=== PATIENT | female | born 1995 | race Caucasian/White ===

== ENCOUNTER 2018-12-22 20:50 | Emergency (ER) | payer OTHER, SELFPAY ==
[2018-12-22 20:53] VITALS: BP 130/79; PULSE 95; RESP 20; TEMP 37.1; O2SAT 100
--- NOTE | 2018-12-22 20:58 | DI.RAD.S_ITS ---
PROCEDURE: XR CHEST 2V INDICATIONS: productive cough TECHNIQUE: 2 views of the chest were acquired. COMPARISON: None. FINDINGS: Surgical changes and devices: None. Lungs and pleura: Lungs are clear. No pleural effusions or pneumothorax. Mediastinum: Mediastinal contours are normal. Heart size is normal. Bones and chest wall: No suspicious bony abnormalities. Soft tissues appear unremarkable. IMPRESSION: 1. No acute cardiopulmonary disease. Dictated by: Huy Abreu M.D. on 12/22/2018 at 21:41 Approved by: Huy Abreu M.D. on 12/22/2018 at 21:41
--- NOTE | 2018-12-22 21:42 | ED.URI ---
HPI - URI/Sore Throat <Michelle Franklin PA-C - Last Filed: 12/22/18 22:12> General Chief Complaint: Upper Respiratory Symptoms Stated Complaint: difficulty breathing Time Seen by Provider: 12/22/18 21:42 Source: patient Mode of arrival: ambulatory Limitations: no limitations History of Present Illness HPI Narrative: This 23-year-old female comes in due to productive cough, wheeze and tight chest. She states that on Friday she developed nasal and sinus congestion. She started to have a little bit of tight chest and wheeze. She began having productive cough with green sputum today and tight chest and wheeze were worse, her inhaler helped temporarily, but she was concerned about pneumonia. She states her throat is a little bit sore from coughing, otherwise no sore throat, no earache. She denies sinus pain or fever. She does not have body aches. She does not have chest pain. She states she is feeling a lot better after a nebulizer treatment. Denies (she is on OCP) Related Data Allergies Allergy/AdvReac Type Severity Reaction Status Date / Time cat dander Allergy Verified 12/22/18 20:58 Review of Systems <Michelle Franklin PA-C - Last Filed: 12/22/18 22:12> Review of Systems ROS Unobtainable: All systems reviewed & are unremarkable except as noted in HPI and below PFSH <Michelle Franklin PA-C - Last Filed: 12/22/18 22:12> Medical History (Updated 12/22/18 @ 22:03 by Michelle Franklin PA-C) Allergy-induced asthma (Chronic) Chronic constipation (Chronic) Dysphagia (Chronic) Surgical History (Updated 12/22/18 @ 22:03 by Michelle Franklin PA-C) Status post tonsillectomy (Resolved) Social History Smoking Status: Never smoker Social History Smoking Status: Never smoker Exam <Michelle Franklin PA-C - Last Filed: 12/22/18 22:12> Narrative Exam Narrative: GENERAL APPEARANCE: Patient sitting comfortably, in no distress. HEAD: No sinus TTP. EYES: PERRL, EOMI. EARS: Normal auditory canals, TMS intact with normal light reflexes. ORAL CAVITY: Normal oropharynx. THROAT: Clear. NECK/THYROID: Neck supple, full range of motion, no cervical lymphadenopathy. LUNGS: Breath sounds are somewhat coarse, but no wheezes or crackles, good air entry, occasional wet cough on exam HEART: RRR without murmur, nl S1, S2, no S3 or S4. DERMATOLOGIC: No exanthem EXTREMITIES: No edema Initial Vital Signs Initial Vital Signs: Vital Signs Temperature 98.8 F 12/22/18 20:53 Pulse Rate 95 H 12/22/18 20:53 Respiratory Rate 20 12/22/18 20:53 Blood Pressure 130/79 12/22/18 20:53 Pulse Oximetry 100 12/22/18 20:53 <Bao Snow DO - Last Filed: 12/23/18 02:50> Initial Vital Signs Initial Vital Signs: Vital Signs Temperature 98.8 F 12/22/18 20:53 Pulse Rate 95 H 12/22/18 20:53 Respiratory Rate 20 12/22/18 20:53 Blood Pressure 130/79 12/22/18 20:53 Pulse Oximetry 100 12/22/18 20:53 Course <Michelle Franklin PA-C - Last Filed: 12/22/18 22:12> Orders Ordered: ED Orders 12/22/18 20:58 XR chest 2V Stat Discontinued Medications Albuterol (Ventolin Hfa Prepack) 1 box MISC SEEINSTR ONE Stop: 12/22/18 21:36 Last Admin: 12/22/18 21:54 Dose: 1 box Albuterol/Ipratropium (Duoneb) 3 ml INH NOW ONE Stop: 12/22/18 21:37 Last Admin: 12/22/18 21:54 Dose: 3 ml Vital Signs - 8 hr 12/22/18 20:53 12/22/18 22:07 Temperature 98.8 F Pulse Rate 95 H 91 H Respiratory Rate 20 22 Blood Pressure 130/79 120/71 Pulse Oximetry 100 98 <DO Jeanine Botello Last Filed: 12/23/18 02:50> Orders Ordered: ED Orders 12/22/18 20:58 XR chest 2V Stat Discontinued Medications Albuterol (Ventolin Hfa Prepack) 1 box MISC SEEINSTR ONE Stop: 12/22/18 21:36 Last Admin: 12/22/18 21:54 Dose: 1 box Albuterol/Ipratropium (Duoneb) 3 ml INH NOW ONE Stop: 12/22/18 21:37 Last Admin: 12/22/18 21:54 Dose: 3 ml Vital Signs - 8 hr 12/22/18 20:53 12/22/18 22:07 Temperature 98.8 F Pulse Rate 95 H 91 H Respiratory Rate 20 22 Blood Pressure 130/79 120/71 Pulse Oximetry 100 98 MDM - URI/Sore Throat <Michelle Franklin PA-C - Last Filed: 12/22/18 22:12> Imaging Data Chest x-ray: Radiologist's impression: [address] [address] XRay Report Signed Patient: Shayla Zayas MMR#: [id number] : 1995Acct:[id number] Age/Sex: te of Service: 12/22/18 Loc: ED Accession Number: [id number] Procedure: XR chest 2V Ordering Provider: Bao Snow D.O. PROCEDURE: XR CHEST 2V INDICATIONS: productive cough TECHNIQUE: 2 views of the chest were acquired. COMPARISON: None. FINDINGS: Surgical changes and devices: None. Lungs and pleura: Lungs are clear. No pleural effusions or pneumothorax. Mediastinum: Mediastinal contours are normal. Heart size is normal. Bones and chest wall: No suspicious bony abnormalities. Soft tissues appear unremarkable. IMPRESSION: 1. No acute cardiopulmonary disease. Dictated by: Huy Abreu M.D. on 12/22/2018 at 21:41 Approved by: Huy Abreu M.D. on 12/22/2018 at 21:41 Discharge Plan Departure Patient Disposition: Home Clinical Impression: Mild intermittent reactive airway disease Upper respiratory infection Qualifiers: URI type: unspecified viral URI Qualified Code(s): J06.9 - Acute upper respiratory infection, unspecified Discharge Date/Time: 12/22/18 22:08 Interventions: ED Discharge Assessment Last Done: 12/22/18 22:07 Instructions: DI for Viral Upper Respiratory Infection -- Adult, DI for Reactive Airway Disease-Adult Activity Restrictions/Additional Instructions: I think that you have a viral head and chest cold which is causing your asthma to flare up. Your chest x-ray was normal today. Please continue your allergy medicine. You may wish to add pseudoephedrine (you can get this from the pharmacist [id number]) during the day to help with sinus pressure and nasal congestion, as well as Mucinex to help the chest congestion. Please use the inhaler as often as needed for tight chest and this may also help with your cough. Please stay home from work if you are feeling poorly and coughing a lot the next couple of days. Please follow-up with your PCP in the next couple of days to listen to your lungs again and determine whether you need any additional treatment besides your current inhaler. Viruses typically resolve on their own in a week or so Referrals: [facility] [Provider Group] <Bao Snow DO - Last Filed: 12/23/18 02:50> Cosjennifer ED Attending Shin Attestation: I was immediately available in the department for consultation. Documentation has been reviewed. I agree with assessment and plan.
[2018-12-22] MEDS: ALBUTEROL/IPRATROPIUM 3 ML AMPUL INH (21:54)
[2018-12-22] MEDS: ALBUTEROL HFA PREPACK 1 BOX MISC (21:54)
[2018-12-22 22:07] VITALS: BP 120/71; PULSE 91; RESP 22; O2SAT 98
== END 2018-12-22 22:08 | disposition home or self-care (01) ==
PROVIDERS: Emergency Provider Internal Medicine
DX: J45.20 Mild intermittent asthma, uncomplicated (principal); J06.9 Acute upper respiratory infection, unspecified; R07.89 Other chest pain
CPT/HCPCS: 71046; 94640; 99282; 99283

== ENCOUNTER 2019-01-27 12:08 | Day surgery (SDC) | payer OTHER, SELFPAY ==
--- NOTE | 2019-01-27 | PATH_ITS ---
[facility] Accession Number: [id number] . 01 Material submitted: . PART A: esophagus - DISTAL ESOPHAGEAL BIOPSY PART B: esophagus - PROXIMAL ESOPHAGEAL BIOPSY PART C: gastrointestinal site - GASTRIC ANTRUM . 01 Clinical history: . A-B: R/O EOE . 02 Diagnosis: A. - B. Distal Esophagus, Proximal Esophagus, Biopsies: Squamous mucosa with increased intraepithelial eosinophils (greater than 50 per high-powered field), please see comment. Negative for dysplasia and malignancy. . C. Stomach, Antrum, Biopsies: Reactive gastropathy with increased eosinophilia in the lamina propria (please see comment). No evidence of Helicobacter on H/E stain. Negative for intestinal metaplasia. Negative for dysplasia and malignancy. . . . . [facility]/02/01/2019 . 02 Comment: A.-B. In the proper clinical setting, the histopathologic appearance would support a clinical impression of eosinophilic esophagitis. The differential diagnosis includes drug reaction, gastroesophageal reflux, and food allergies. . C. The gastric antral biopsies show prominent increased eosinophils within the lamina propria. This process may be related to the eosinophilia in the esophageal biopsies. The differential diagnosis also includes infection, medication-related mucosal injury, and other diseases that cause systemic eosinophilia. . . 02 Electronically signed: . Yulia Kelly MD, Pathologist NPI- [id number] . 01 Gross description: . Part A: DISTAL ESOPHAGEAL BIOPSY: Received in formalin are 3 fragment(s) of avila, soft tissue measuring 0.1 x 0.1 x 0.1 cm to 0.2 x 0.1 x 0.1 cm which is entirely submitted and submitted entirely in 1 cassette(s) Part B: PROXIMAL ESOPHAGEAL BIOPSY: Received in formalin are 3 fragment(s) of avila, soft tissue measuring 0.1 x 0.1 x 0.1 cm to 0.2 x 0.2 x 0.2 cm which is entirely submitted and submitted entirely in 1 cassette(s) Part C: GASTRIC ANTRUM: Received in formalin are multiple fragment(s) of avila, soft tissue measuring 0.1 x 0.1 x 0.1 cm to 0.2 x 0.2 x 0.2 cm which is entirely submitted and submitted entirely in 1 cassette(s) /DMC /DMC . 02 Microscopic: . C. An immunohistochemical stain was performed to evaluate for Helicobacter organisms; however, there is no tissue remaining in the deeper levels used for examination. The control stain showed appropriate reactivity. Additional levels were also examined. . * This test was developed and its performance characteristics determined by [facility]. It has not been cleared or approved by the U.S. Food and Drug Administration. The FDA has determined that such clearance or approval is not necessary. This test is used for clinical purposes. It should not be regarded as investigational or for research. . 02 Pathologist provided ICD-10: K20.0 . 02 CPT . 462760, 323183, 768072, G98339 Performed at: 01 [facility] [address], [place], [place] [id number] MD Huy Mercer MD Phone: [phone] Performed at: 02 [facility] [place] [address] [place], [place] [id number] MD Yulia Kelly MD Phone: [phone]
[2019-01-27 12:41] VITALS: BP 112/69; PULSE 78; RESP 14; TEMP 36.8; O2SAT 98; BMI 22.2
[2019-01-27] MEDS: SODIUM CHLORIDE 0.9% 1,000 ML 200 ML IV (12:41)
--- NOTE | 2019-01-27 13:05 | PM.PREOP ---
Pre-operative Note Interval Note History & Physical reviewed/Exam performed by Physician: Yes Changes to H&P: No ASA Class (for procedural sedation): I
[2019-01-27] MEDS: fentaNYL 250 MCG/5 ML INJ IV (13:58)
[2019-01-27] MEDS: MIDAZOLAM 5 MG/5 ML VIAL IV (13:59)
--- NOTE | 2019-01-27 14:00 | PM.OP.ENDO ---
Operative Date/Time/Diagnoses Date of procedure: 01/27/19 Procedure & Clinicians Study performed: EGD with biopsy Moderate conscious sedation was administered by the endoscopy nurse and supervised by the endoscopist. The following parameters were monitored: Oxygen saturation, heart rate, blood pressure, and response to care. Sedation: 7 mg midazolam, 100 micro g fentanyl Indications: Esophageal dysphagia, GERD Procedure Notes Procedure in detail: Prior to the procedure, history and physical was performed, and patient medications and allergies were reviewed. Preprocedure nursing history and assessment was reviewed. Patient identification and proposed procedure were verified by the physician and nurse in the procedure room. The physical status of the patient was reassessed after the procedure. After informed consent was obtained including risks, benefits, and alternatives, the scope was passed under direct vision. Throughout the procedure, the patient's blood pressure, pulse, and oxygen saturations were monitored continuously. The upper endoscope was introduced through the mouth and advanced to the 2nd portion of the duodenum. Retroflexion was performed in the stomach. The patient tolerated the procedure well. The entire esophagus was characterized by concentric, shallow rings suspicious for possible eosinophilic esophagitis. Biopsies taken from the proximal and distal esophagus. Regular Z-line located at 38 cm from the incisors. In the antrum, there were a few small to medium sized erosions. Biopsies taken to rule out H pylori. The stomach was otherwise normal appearing. The entire examined duodenum was normal appearing. Impression: Mucosal changes in the esophagus concerning for possible EOE. Biopsies taken. Erosions in the gastric antrum. Biopsies taken Normal appearing duodenum Sedation minutes: 14 Complications: other (EBL minimal. No complications) Plan for aftercare: Follow-up biopsy results Follow anti-reflux diet and lifestyle Resume home medications Return to GI clinic as previously recommended Discharge home with escort
[2019-01-27 14:04] VITALS: BP 106/68; PULSE 77; RESP 20; TEMP 36.6; O2SAT 96
[2019-01-27 14:10] VITALS: BP 108/65; PULSE 97; RESP 12; O2SAT 97
[2019-01-27 14:14] VITALS: PULSE 71; RESP 18; TEMP 36.6; O2SAT 97
[2019-01-27 14:15] VITALS: BP 101/64; PULSE 74; RESP 14; O2SAT 98
== END 2019-01-27 14:38 | disposition home or self-care (01) ==
PROVIDERS: Visit Provider Internal Medicine
PROC: 0DJ08ZZ Inspection of Upper Intestinal Tract, Via Natural or Artificial Opening Endoscopic (ICD-10-PCS; CPT 43235; principal; 2019-01-27 13:30)
DX: K20.0 Eosinophilic esophagitis (principal); K21.9 Gastro-esophageal reflux disease without esophagitis
CPT/HCPCS: 43239; 88305; 88342; J2250; J3010

== ENCOUNTER 2019-06-03 17:48 | Emergency (ER) | payer OTHER, SELFPAY ==
[2019-06-03 18:10] VITALS: BP 134/106; PULSE 79; RESP 14; TEMP 36.6; O2SAT 100; BMI 22.6
--- NOTE | 2019-06-03 18:20 | ED_ITS ---
HPI - Wound/Laceration <AKILA Fragoso - Last Filed: 06/03/19 19:19> General Chief Complaint: Wound/Laceration Stated Complaint: cut left index finger Time Seen by Provider: 06/03/19 18:18 Source: patient Mode of arrival: Ambulatory Limitations: no limitations History of Present Illness HPI narrative: 24-year-old healthy female, presents emergency department today complaining of a laceration from a knife while cutting a potato to her left index finger. She states bleeding was controlled with a washcloth. Patient denies any numbness, tingling, decreased range of motion, erythema, swelling, or pussy discharge. Related Data Home Medications Medication Instructions Recorded Confirmed escitalopram oxalate 15 mg PO DAILY 01/27/19 01/27/19 inhaler,assist devices,access 01/27/19 01/27/19 levonorgestrel-ethinyl estrad 1 tab PO DAILY 01/27/19 01/27/19 [Vienva] omeprazole 20 mg PO Q OTHER DAY 01/27/19 01/27/19 Allergies Allergy/AdvReac Type Severity Reaction Status Date / Time No Known Drug Allergies Allergy Verified 06/03/19 18:10 Review of Systems <AKILA Fragoso - Last Filed: 06/03/19 19:19> Review of Systems Narrative: REVIEW OF SYSTEMS: GENERAL: Denies fever or chills. HENT: Denies head trauma. EYE: Denies double vision or vision loss. CARDIOVASCULAR: Denies syncope. MUSCULOSKELETAL: Denies weakness, or deformities. INTEGUMENTARY: Complains of laceration, see HPI. NEURO: Denies numbness or tingling. PFSH <AKILA Fragoso - Last Filed: 06/03/19 19:19> Medical History Allergy-induced asthma (Chronic) Chronic constipation (Chronic) Dysphagia (Chronic) Hemorrhoids (Acute) Surgical History H/O wisdom tooth extraction (Acute) History of colonoscopy (Acute) Status post tonsillectomy (Resolved) Social History household members: spouse Smoking Status: Never smoker Social History household members: spouse Smoking Status: Never smoker Exam <AKILA Fragoso - Last Filed: 06/03/19 19:19> Initial Vital Signs Initial Vital Signs: Vital Signs Temperature 97.8 F 06/03/19 18:10 Pulse Rate 79 06/03/19 18:10 Respiratory Rate 14 06/03/19 18:10 Blood Pressure 134/106 H 06/03/19 18:10 Pulse Oximetry 100 06/03/19 18:10 PHYSICAL EXAMINATION: GENERAL: Well groomed, alert, and cooperative. Answers questions promptly and appropriately. Vital signs noted. HENT: Normocephalic, atraumatic. RESPIRATORY: Normal respiratory rate, trachea midline, airway patent. No strid or, nasal flaring or accessory muscle use. MUSCULOSKELETAL: Normal gait and coordination. Equal tone and mass bilaterally. Full range of motion and equal strength bilaterally to all fingers on left hand. EXTREMITIES: CMS intact. Moves all extremities. SKIN: Warm, dry, soft, appropriate color for ethnicity. 2cm laceration to left index finger between in the area between mid and dip joint (laceration does not involve the joint). Wound bed visualized and irrigated with normal saline. Bleeding controlled. No surrounding erythema or exudate. Three sutures were placed, see procedure note. NEURO: Alert and Oriented X 3. Good coordination. PSYCH: Appropriate affect and mood. <Bao Snow DO - Last Filed: 06/04/19 02:31> Initial Vital Signs Initial Vital Signs: Vital Signs Temperature 97.8 F 06/03/19 18:10 Pulse Rate 79 06/03/19 18:10 Respiratory Rate 14 06/03/19 18:10 Blood Pressure 134/106 H 06/03/19 18:10 Pulse Oximetry 100 06/03/19 18:10 Procedures <AKILA Fragoso - Last Filed: 06/03/19 19:19> Laceration Repair Laceration 1: Site: hand Side (If applicable): left Size (cm): 2 Description: linear Depth: simple, single layer Local Anesthetic: lidocaine 1% and with bicarb Amount of anesthesia used (mL): 2 Pre-repair: irrigated extensively Skin layer closed with: nylon Size (cm): 5-0 Number of sutures: 3 Course <AKILA Fragoso - Last Filed: 06/03/19 19:19> Course Course Narrative: Wound was dressed with bacitracin and a bandage by nursing staff. Orders Ordered: Discontinued Medications Bacitracin (Bacitracin) 1 applic TOP NOW ONE Stop: 06/03/19 18:51 Last Admin: 06/03/19 18:52 Dose: 1 applic Documented by: LREED Lidocaine/Sodium Bicarbonate (Buffered Lidocaine 10 Ml Syr) 10 ml INJ NOW ONE Stop: 06/03/19 18:27 Last Admin: 06/03/19 18:29 Dose: 10 ml Documented by: LREED Vital Signs Vital signs: Vital Signs - 8 hr 06/03/19 19:00 Pulse Rate 65 Respiratory Rate 16 Blood Pressure 117/58 L Pulse Oximetry 98 <Bao Snow DO - Last Filed: 06/04/19 02:31> Orders Ordered: Discontinued Medications Bacitracin (Bacitracin) 1 applic TOP NOW ONE Stop: 06/03/19 18:51 Last Admin: 06/03/19 18:52 Dose: 1 applic Documented by: LREED Lidocaine/Sodium Bicarbonate (Buffered Lidocaine 10 Ml Syr) 10 ml INJ NOW ONE Stop: 06/03/19 18:27 Last Admin: 06/03/19 18:29 Dose: 10 ml Documented by: LREED Vital Signs Vital signs: Vital Signs - 8 hr 06/03/19 19:00 Pulse Rate 65 Respiratory Rate 16 Blood Pressure 117/58 L Pulse Oximetry 98 MDM - Wound/Laceration <AKILA Fragoso - Last Filed: 06/03/19 19:19> Medical Records Attestation: I reviewed the patient's medical records. Lab Data Attestation: I reviewed the patient's lab results. MDM Narrative Medical decision making narrative: Simple laceration repair with sutures. Discharge instructions discussed and return precautions given. Discharge Plan Departure Patient Disposition: Home Clinical Impression: Laceration Discharge Date/Time: 06/03/19 19:02 Instructions: DI for Laceration Repair Activity Restrictions/Additional Instructions: Thank you for entrusting me with your care today. As discussed, I have placed 3 sutures in your laceration, you may have these removed in [address] bacitrac[address] and a Band-Aid on the wound. Monitor for signs of infection such as increased redness, increased pain, fever, or Pussy discharge. Return to the emergency department or walk-in clinic if the symptoms developed. Prescriptions: No Action levonorgestrel-ethinyl estrad [Vienva] 0.1-20 mg-mcg Tablet 1 tab PO DAILY RF: 0 omeprazole 20 mg Capsule,Delayed Release(Dr/Ec) 20 mg PO Q OTHER DAY RF: 0 escitalopram oxalate 10 mg Tablet 15 mg PO DAILY RF: 0 (DME) inhaler,assist devices,access Device RF: 0 Referrals: Kassi Armenta ARNP [Primary Care Provider] -
[2019-06-03] MEDS: LIDO 1%/SOD BICARB 8.4% (10ML) 10 ML SYRINGE INJ (18:29)
[2019-06-03] MEDS: BACITRACIN OINT 0.9 GM PCKT 1 APPLIC TOP (18:52)
--- NOTE | 2019-06-03 18:59 | PC.NURSE ---
Wound cleansed and closed with 3 sutures. Bacitracin and bandaid applied. Pt verbalizes understanding of need to watch for s/sx of infection.
[2019-06-03 19:00] VITALS: BP 117/58; PULSE 65; RESP 16; O2SAT 98
== END 2019-06-03 19:02 | disposition home or self-care (01) ==
PROVIDERS: Emergency Provider Nurse Practitioner; PCP Nurse Practitioner Family
DX: S61.211A Laceration without foreign body of left index finger without damage to nail, initial encounter (principal); W26.0XXA Contact with knife, initial encounter
CPT/HCPCS: 12001; 99283

== ENCOUNTER → 2020-04-29 11:27 | Outpatient (CLI) | payer OTHER, SELFPAY ==
[2020-04-30 06:15] LABS: COVID19 Sendout Not Detected (Not Detect)
== END ==
PROVIDERS: PCP Nurse Practitioner Family; Visit Provider Physician Assistant
DX: Z11.59 Encounter for screening for other viral diseases (principal)
CPT/HCPCS: 87635

== ENCOUNTER 2020-05-02 06:40 | Day surgery (SDC) | payer OTHER, SELFPAY ==
--- NOTE | 2020-05-02 | PATH_ITS ---
[facility] Accession Number: [id number] . 01 Material submitted: . esophagus, E-G Junction - GE JUNCTION . 02 Diagnosis: Gastroesophageal Junction, Biopsy: Squamocolumnar junctional mucosa with increased intraepithelial eosinophils (greater than 50 per high-power field); please see comment. Negative for specialized intestinal metaplasia, dysplasisa or malignancy. MRV 05/04/2020 1101 Local . 02 Comment: The clinical history of eosinophilic esophagitis is noted. The histologic findings raise a differential diagnosis including eosinophilic esophagitis and severe reflux. Biopsies from the mid to proximal esophagus may be contributory in making this distinction. . 02 Electronically signed: . Juan Gambino MD, PhD, Pathologist NPI- [id number] . 01 Gross description: . Received in formalin, labeled GE junction, are five avila fragments of soft tissue measuring 1.0 x 0.8 x 0.2 cm in aggregate. The specimen is entirely submitted in cassette A1. (EA/[id number]) /V 05/03/2020 1124 Local . 02 Pathologist provided ICD-10: K21.9, K20.0 . 02 CPT . 123717 Performed at: 01 [facility] [address], [place], [place] [id number] MD Huy Mercer MD Phone: [phone] Performed at: 02 [facility] [address] [place], [place] [id number] MD Yulia Kelly MD Phone: [phone]
[2020-05-02] MEDS: LACTATED RINGERS 1,000 ML 200 ML IV (07:16)
[2020-05-02 07:17] VITALS: BP 115/72; PULSE 67; RESP 16; TEMP 37.2; O2SAT 97; BMI 20.9
--- NOTE | 2020-05-02 07:42 | PM.HP.1 ---
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 She stopped her proton pump inhibitor an reflux symptoms return. She is back on it and the symptoms have gone away. She is here for an EGD and biopsy Patient History Medical History (Updated 05/02/20 @ 07:44 by Jay Mancini MD) Allergy-induced asthma (Chronic) Chronic constipation (Chronic) Dysphagia (Chronic) Eosinophilic esophagitis (Acute) Hemorrhoids (Acute) Surgical History H/O wisdom tooth extraction (Acute) History of colonoscopy (Acute) Status post tonsillectomy (Resolved) Family & Social History Family History Grandmother Ovarian cancer Grandfather Stroke Social History: household members spouse Tobacco & Substance use: Smoking Status Never smoker alcohol intake current alcohol intake frequency a few times a month Substance Use Type does not use Meds Home Medications and Allergies Home Medications Medication Instructions Recorded Confirmed Type levonorgestrel-ethinyl estrad 1 tab PO DAILY 01/27/19 05/02/20 History [Vienva] escitalopram oxalate 10 mg tablet 15 mg PO DAILY 03/29/20 05/02/20 History [id number]-Ca carb-vit K 1 tab PO DAILY 03/29/20 05/02/20 History 18 mg iron-400 mcg-500 mg tablet pantoprazole 40 mg tablet,delayed 40 mg PO DAILY #90 tab 03/29/20 05/02/20 Rx release Allergies Allergy/AdvReac Type Severity Reaction Status Date / Time No Known Drug Allergies Allergy Verified 05/02/20 07:07 Review of Systems Review of Systems ROS: Yes All systems reviewed with the patient and are negative except as otherwise documented Exam Vital Signs (past 8 hours): - 05/02/20 07:17 Temperature 98.9 F Pulse Rate 67 Respiratory Rate 16 Blood Pressure 115/72 Pulse Oximetry 97 Oxygen Delivery Method Room Air Narrative Exam Narrative: Pleasant cooperative patient no apparent distress. Lungs are clear to auscultation. No rales or rhonchi. Heart regular rate and rhythm no murmur gallop. Abdomen is soft nontender without mass. No obvious hernias. Patient is alert and oriented x3. Assessment & Plan Assessment and plan (1) Eosinophilic esophagitis: Problem details: Plan EGD. She understands the risks of bleeding perforation wishes to proceed. Status: Acute
--- NOTE | 2020-05-02 07:44 | PM.PREOP ---
Pre-operative Note COVID-19 COVID-19 status: Negative Result date/Date tested (Pos, Neg/Pending): 04/29/20 Interval Note History & Physical reviewed/Exam performed by Physician: Yes Changes to H&P: No ASA Class (for procedural sedation): I
[2020-05-02] MEDS: LIDOCAINE 4% SOLN 50 ML 20 ML TOP (07:49)
[2020-05-02] MEDS: MIDAZOLAM 5 MG/5 ML VIAL IV ×3 (07:50→07:57)
[2020-05-02] MEDS: fentaNYL 250 MCG/5 ML INJ IV ×2 (07:50→07:55)
--- NOTE | 2020-05-02 08:05 | PM.OP.ENDO ---
Operative Date/Time/Diagnoses Date of procedure: 05/02/20 Time of procedure: 08:05 Pre-op diagnosis: History of eosinophilic esophagitis. Post-op diagnosis: same Procedure & Clinicians Study performed: EGD with cold biopsy. Same procedure as scheduled: Yes Indications: Patient who developed new symptoms of reflux when she came off her proton pump inhibitor. Brought in for re-biopsy of her esophagus. She has a history of eosinophilic esophagitis Procedure Notes SCOAP/Timeout: Performed Procedure in detail: The patient had topical anesthetic applied to oropharynx. She was placed in left lateral decubitus position and underwent IV sedation directed by the surgeon consisting of fentanyl and Versed. A bite block was inserted and the scope was advanced through it into the esophagus. The esophagus was unremarkable. GE junction was noted at 35 cm from the incisors. Possible mild narrowing at this level. No marked inflammation however. Just below the GE junction the tissues looked very mildly inflamed.. The stomach insufflated well. There were no lesions seen in the body, antrum or at the incisura. The pyloric channel was patent. The duodenum was examined to the 4th part. In the distal 3rd part of the esophagus there was a duodenal diverticulum. There is no inflammation. The scope was brought back into the stomach and retroflexed. The proximal stomach was remarkable for a small hiatal hernia.. The scope was straightened and brought out through the esophagus again. Random Biopsies were taken at and just below the GE junction. The scope was removed and the patient tolerated the procedure well. Scope withdrawal time: Not applicable Sedation minutes: 13 Findings: diverticulosis (Third part of the duodenum) and hiatal hernia (Small) Post-procedure Recommendations: Continue medication(s) (Pantoprazole. This or similar may be necessary for life.) Follow up: as needed Disposition: PACU
[2020-05-02 08:10] VITALS: BP 104/67; PULSE 60; RESP 12; TEMP 36.5; O2SAT 95
[2020-05-02 08:15] VITALS: BP 94/53; PULSE 55; RESP 12; O2SAT 94
[2020-05-02 08:20] VITALS: BP 94/56; PULSE 55; RESP 12; O2SAT 94
[2020-05-02 08:25] VITALS: BP 90/55; PULSE 51; RESP 95; O2SAT 12
[2020-05-02 08:35] VITALS: BP 98/60; PULSE 53; RESP 16; TEMP 36.6; O2SAT 98
== END 2020-05-02 08:37 | disposition home or self-care (01) ==
PROVIDERS: PCP Family Medicine; Referring Provider Family Medicine; Visit Provider Specialist
PROC: 0DJ08ZZ Inspection of Upper Intestinal Tract, Via Natural or Artificial Opening Endoscopic (ICD-10-PCS; CPT 43235; principal; 2020-05-02 07:45)
DX: K20.0 Eosinophilic esophagitis (principal); K57.10 Diverticulosis of small intestine without perforation or abscess without bleeding; K44.9 Diaphragmatic hernia without obstruction or gangrene
CPT/HCPCS: 43239; 99152; J2250; J3010

== ENCOUNTER 2022-01-22 07:56 | Emergency (ER) | payer OTHER, SELFPAY ==
[2022-01-22 08:13] VITALS: BP 122/72; PULSE 96; RESP 17; TEMP 36.8; O2SAT 100
--- NOTE | 2022-01-22 08:17 | ED.GENADULT ---
HPI - General Adult General Chief complaint: Ear Stated complaint: Infected earring- needs out Time Seen by Provider: 01/22/22 08:10 History of Present Illness HPI narrative: 26-year-old woman with no significant medical problems presents with left ear ring infection. The interior crux had a bar alanis type earring was placed 3 weeks ago and she has had continued problems since. Initially I have some swelling of the posterior portion of the ear with posterior chain adenopathy. Today she is just noticing increasing pain and likely hearing removed in is unable to do so by herself. She is 5 weeks . No difficulties with fevers, cervical adenopathy, headache, bleeding from the ER or tenderness over the mastoid process. Related Data Home Medications Medication Instructions Recorded Confirmed levonorgestrel-ethinyl estradiol 1 tab PO DAILY 01/27/19 05/02/20 0.1 mg-20 mcg tablet (Vienva) escitalopram oxalate 10 mg tablet 15 mg PO DAILY 03/29/20 05/02/20 [id number] carb-vit K 1 tab PO DAILY 03/29/20 05/02/20 18 mg iron-400 mcg-500 mg tablet (Women's Multivitamin) Previous Rx's Medication Instructions Recorded pantoprazole 40 mg tablet,delayed 40 mg PO DAILY #90 tab 03/29/20 release fluticasone propionate 220 See Rx Instructions INHALATION BID 05/29/20 mcg/actuation HFA aerosol inhaler #12 gram Allergies Allergy/AdvReac Type Severity Reaction Status Date / Time No Known Drug Allergies Allergy Verified 01/22/22 08:20 Review of Systems Review of Systems Narrative: Remainder of complete review of systems is otherwise unremarkable except for that included in the HPI. Patient History Medical History (Updated 01/22/22 @ 08:23 by Osiris Hunter MD) Allergy-induced asthma Chronic constipation Dysphagia Eosinophilic esophagitis Hemorrhoids Surgical History H/O wisdom tooth extraction History of colonoscopy Status post tonsillectomy Family History Grandmother Ovarian cancer Grandfather Stroke Social History marital status: household members: spouse occupational status: employed Smoking Status: Never smoker alcohol intake: current Smoking Status: Never smoker alcohol intake frequency: a few times a month Substance Use Type: does not use Exam Initial Vital Signs Initial Vital Signs: General: Alert appropriate in no acute distress HEENT: Left ear entire helix to the tragus is erythematous without obvious infection or discharge. Respiratory: Able to speak in full sentences, no obvious respiratory distress Skin: No obvious rashes, warm and dry Neurologic: Grossly intact no obvious asymmetries or abnormalities Psych: appropriate insight and affect, cooperative Medical Decision Making [facility] Narrative Medical decision making narrative: 26-year-old woman with 3-week-old piercing to enter cartilage of her ear with pain, redness and concern for infection. The hearing is removed. Will give her a prescription for amoxicillin, she is 5 weeks , to begin tomorrow if her ear is still hurting. Suspect much of the redness is simply irritation from the hearing and the manipulation to remove it. She understands, questions are answered she is safe for home discharge Discharge Plan Departure Patient Disposition: Home Clinical Impression: Infected embedded earring Activity Restrictions/Additional Instructions: Thank you for coming in today Your ear outer cartilage is red and tender however I suspect that this is more related to superficial irritation and the manipulation required to get the barbell ear ring out. I am giving you a prescription for amoxicillin, this is safe in early , to begin tomorrow if you feel that symptoms are persisting or getting worse. At this time you do not have any swollen lymph nodes so I believe it is safe to wait and see how your body responses simply having the earring removed If you find that you are getting worse or develop any new symptoms, please feel free to return to the emergency department for further evaluation. Prescriptions: No Action fluticasone propionate 220 mcg/actuation HFA aerosol inhaler See Rx Instructions INHALATION BID Qty: 12 1RF Rx Instructions: [place] 2 puffs into mouth and swallow b.i.d.. (do NOT inhale); no food or drink for 30 minutes after Women's Multivitamin 18 mg iron-400 mcg-500 mg tablet 1 tab PO DAILY 0RF Rx Instructions: give with meal/snack pantoprazole 40 mg tablet,delayed release (DR/EC) 40 mg PO DAILY Qty: 90 2RF levonorgestrel-ethinyl estrad [Vienva] 0.1-20 mg-mcg Tablet 1 tab PO DAILY 0RF escitalopram oxalate 10 mg tablet 15 mg PO DAILY 0RF Referrals: Gurpreet Durán PA-C [Primary Care Provider] -
== END 2022-01-22 08:25 | disposition home or self-care (01) ==
PROVIDERS: Emergency Provider Emergency Medicine; PCP Physician Assistant
DX: S00.452A Superficial foreign body of left ear, initial encounter (principal)
CPT/HCPCS: 99281

== ENCOUNTER → 2022-02-22 12:05 | Outpatient (CLI) | payer OTHER, SELFPAY ==
[2022-02-22 14:16] LABS: Add Manual Diff / Slide Review NO; Basophils Absolute Auto 100 /uL (0-100); Basophils Percent Auto 0.8 % (0-2); Eosinophils Absolute Auto 200 /uL (0-450); Eosinophils Percent Auto 2.4 % (2-4); Hematocrit 37.2 % (36-46); Hemoglobin 12.8 g/dL (12.0-16.0); Lymphocytes Absolute Auto 1000 /uL (1100-4500); Lymphocytes Percent Auto 11.1 % (25-40); Mean Corpuscular HGB Conc 34.5 % (30-36); Mean Corpuscular Hemoglobin 32.9 PG (26-34); Mean Corpuscular Volume 95.2 fL (80-100); Monocytes Absolute Auto 800 /uL (0-900); Monocytes Percent Auto 8.4 % (3-14); Neutrophils Absolute Auto 7000 /uL (1500-7000); Neutrophils Percent Auto 77.3 % (50-75); Platelet Count 251 X10^3/uL (150-400); Red Blood Cell Count 3.91 X10^6/uL (4.0-5.2); Red Cell Distribution Width 12.2 % (11.6-14.8)
[2022-02-22 15:45] LABS: Hepatitis B Surface Antigen NEGATIVE s/c (NEGATIVE); Rubella Antibody IgG 8.9 IU/mL (>15)
[2022-02-22 16:03] LABS: HIV 1 & 2 Ab/Ag 4th Gen Combo NEGATIVE (NEGATIVE); Hep C Virus Ab w/Reflex Quant NEGATIVE s/c (NEGATIVE)
[2022-02-23 04:37] LABS: RPR Screen Non Reactive (Non Reactive)
[2022-02-23 08:53] LABS: Varicella IgG Antibody <135 index (Immune >165)
== END ==
PROVIDERS: PCP Physician Assistant; Referring Provider Obstetrics & Gynecology; Visit Provider Obstetrics & Gynecology
DX: Z34.01 Encounter for supervision of normal first pregnancy, first trimester (principal)
CPT/HCPCS: 36415; 80055; 86787; 86803; 86850; 86900; 86901; 87389

== ENCOUNTER → 2022-03-26 09:45 | Outpatient (CLI) | payer OTHER, SELFPAY ==
[2022-03-26 13:47] LABS: Appearance Urine UA CLEAR; Bilirubin Urine UA NEGATIVE (NEGATIVE); Color Urine UA YELLOW; Glucose Urine UA NEGATIVE (Negative); Ketones Urine UA NEGATIVE (NEGATIVE); Leukocyte Esterase Urine UA NEGATIVE (NEGATIVE); Nitrite Urine UA NEGATIVE (Negative); Occult Blood Urine UA NEGATIVE (Negative); Protein Urine UA NEGATIVE (Negative); Specific Gravity Urine UA <=1.005 (1.000-1.035); Urobilinogen Urine UA 0.2 E.U./dL (0.2)
== END ==
PROVIDERS: PCP Physician Assistant; Visit Provider Obstetrics & Gynecology
DX: Z34.01 Encounter for supervision of normal first pregnancy, first trimester (principal)
CPT/HCPCS: 81003; 87086

== ENCOUNTER → 2022-04-04 13:28 | Outpatient (CLI) | payer OTHER, SELFPAY ==
[2022-04-06 19:57] LABS: AFP, Serum 31.2 ng/mL (.); Estriol, Free 0.65 ng/mL (.); Inhibin A, Dimeric 122.96 pg/mL (.); Inhibin A, MoM 0.74 (.); Maternal Ethnicity Caucasian (.); Maternal Weight 136 lbs (.); Number of Fetuses No (.); OSBR Risk 1 IN 10000 (.); Results Report (.); Test Results *Screen Negative* (.); hCG, MoM 0.56 (.); hCG, Serum 25340 mIU/mL (.)
== END ==
PROVIDERS: PCP Physician Assistant; Referring Provider Obstetrics & Gynecology; Visit Provider Obstetrics & Gynecology
DX: Z34.02 Encounter for supervision of normal first pregnancy, second trimester (principal); Z3A.16 16 weeks gestation of pregnancy
CPT/HCPCS: 36415; 82105; 82677; 84702; 86336

== ENCOUNTER → 2022-04-26 09:41 | Outpatient (CLI) | payer OTHER, SELFPAY ==
[2022-04-26 13:30] LABS: Urine N gonorrhoeae NOT DETECTED
[2022-04-26 13:33] LABS: Urine Chlamydia NOT DETECTED
== END ==
PROVIDERS: PCP Physician Assistant; Visit Provider Obstetrics & Gynecology
DX: Z34.02 Encounter for supervision of normal first pregnancy, second trimester (principal); Z3A.19 19 weeks gestation of pregnancy
CPT/HCPCS: 87491; 87591

== ENCOUNTER → 2022-05-02 10:48 | Outpatient (CLI) | payer OTHER, SELFPAY ==
--- NOTE | 2022-05-02 10:49 | DI.US.S_ITS ---
PROCEDURE: US OB >= 14 WEEKS FETUS INDICATIONS: ANATOMY SCAN OUTSIDE/PRIOR DATING DATA: Last menstrual period (LMP): 12/13/2021. LMP-based estimated date of delivery (ANGIE): 09/19/2022 First dating scan (date and location): 02/22/2022 Estimated date of delivery (ANGIE) from first dating scan: 09/23/2022.. The calculations are made using the study generated ANGIE of 09/23/2022. TECHNIQUE: Real-time scanning was performed of the fetus, with image documentation and biometric measurements. Endovaginal scanning: Not indicated. COMPARISON: [facility], , OB >= 14 WEEKS FETUS, 04/26/2022, 10:23. FINDINGS: General: A single living intrauterine gestation is present. Presentation: Variable. Placenta: Placental position is anterior, without previa. Amniotic fluid index: 12.5 cm, normal range is 5-24 cm. Single deepest vertical pocket is 3.8 cm. heart rate: 150 beats per minute. Maternal cervical canal: 3.7 cm long. Normal lower limit is 2.5 cm. biometrics: Biparietal diameter: 4.6 cm, 19 weeks, 6 days. Head circumference: 17.4 cm, 20 weeks, 0 day. Abdominal circumference: 14.7 cm, 20 weeks, 0 day. Femur length: 3.1 cm, 19 weeks, 5 days. Clinically estimated gestational age: 20 weeks, 0 day. Composite gestational age from present scan: 19 weeks, 6 days. Estimated weight and percentile: 318 grams, 38 percent. Anatomic survey: Neuro: Ventricles are non-dilated at less than 10 mm. Cisterna magna is normal at 3-11 mm. Cerebellum is normal in size and morphology. Nuchal skin fold: Normal at less than 6 mm between 14-21 weeks gestational age. Face: Nose and lips, facial profile are normal. Spine: No evidence for spina bifida. Heart: 4-chambered heart is present, with normal ventricular outflow tracts. Diaphragm: Diaphragm is intact. Stomach: Left-sided stomach is present. Kidneys: Right renal pelvis measures 3.6 mm. Left renal pelvis measures 4.3 mm. Normal is less than 5 mm in 2nd trimester, less than 7 mm in 3rd trimester. Cord: 3-vessel cord has orthotopic insertion. Bladder: Normal in size. Extremities: All 4 extremities identified. IMPRESSION: 1. Single live intrauterine gestation with fetus in variable presentation. heart rate is 150 beats per minute. Normal amount of amniotic fluid. Estimated weight is at 38 percent. 2. Mild prominence of bilateral renal collecting systems which are still under upper limits of normal. Rest of the anatomic survey is normal. We strive to produce accurate, complete, and clear reports of imaging services. To assist us in improving patient care, this report was composed using standard report templates and voice recognition software. Therefore, it may contain abnormal punctuation, insertions and/or omissions. Occasional wrong-word or sound-alike substitutions may occur. Though we review the report and make efforts to correct it, we do recommend that the report be read carefully in proper context to recognize any text inaccuracies. Dictated by: Дмитрий Sandoval M.D. on 05/02/2022 at 15:25 Approved by: Дмитрий Sandoval M.D. on 05/02/2022 at 15:28
== END ==
PROVIDERS: PCP Physician Assistant; Referring Provider Obstetrics & Gynecology; Visit Provider Obstetrics & Gynecology
DX: Z34.02 Encounter for supervision of normal first pregnancy, second trimester (principal); Z3A.20 20 weeks gestation of pregnancy
CPT/HCPCS: 76811

== ENCOUNTER → 2022-06-13 09:07 | Outpatient (CLI) | payer OTHER, SELFPAY ==
[2022-06-13 11:02] LABS: Hematocrit 34.3 % (36-46); Hemoglobin 11.8 g/dL (12.0-16.0)
[2022-06-13 11:08] LABS: GTT (PREG) 1 Hour PP 50gm Dose 65 mg/dL (76-139)
== END ==
PROVIDERS: Referring Provider Obstetrics & Gynecology; Visit Provider Obstetrics & Gynecology
DX: Z34.02 Encounter for supervision of normal first pregnancy, second trimester (principal); Z3A.26 26 weeks gestation of pregnancy
CPT/HCPCS: 36415; 82950; 85014; 85018

== ENCOUNTER 2022-06-18 11:35 | Observation (INO) | payer OTHER, SELFPAY ==
[2022-06-18] MEDS: NIFEdipine 10 MG CAPSULE PO ×4 (12:54→14:01)
--- NOTE | 2022-06-19 19:06 | P.TNLD_ITS ---
Visit Information Visit Information Date of evaluation: 06/18/22 Primary OB Provider: Alice Blandon On-call OB Provider: Alice Blandon Comments/Additional reasons for admission: Pt is a 27 year old at 26+5 wks gestation who had a sustained contraction while leaving the clinic. No LOF/VB. [facility] Medical History (Updated 06/18/22 @ 11:15 by Alice Blandon MD) Allergy-induced asthma Anxiety (~2015) Chronic constipation Depression Dysphagia Eosinophilic esophagitis GERD (gastroesophageal reflux disease) (~2009) Hemorrhoids IBS (irritable bowel syndrome) (~2021) Infected embedded earring Surgical History (Updated 02/15/22 @ 22:11 by Gem Marsh) Anesthesia H/O wisdom tooth extraction (~11/2020) History of colonoscopy (~2018) History of endoscopy Status post tonsillectomy (~2013) Family History (Updated 02/04/22 @ 08:48 by Lorri Ibrahim RN) Grandmother Ovarian cancer Grandfather Stroke Coronary artery disease Father Pacemaker Social History marital status: number of children: 0 household members: spouse lives independently: Yes housing: house pets and animals: Yes (1 dog, 2 cats, 1 snake) education level: college (gary's degree) occupational status: employed 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, 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) special mino needs: No travel history: over 6 months ago seatbelt use: always helmet use: Yes water heater temp set < 120 deg: Yes (Will check and adjust if needed) working smoke detector in home: Yes fire extinguisher in home: Yes carbon monox detector in home: Yes firearms in home: Yes firearms unloaded and locked: Yes do you feel safe at home: Yes Smoking Status: Never smoker second hand exposure: No alcohol intake: former substance use type: does not use during the past year weight has: remained stable well-balanced diet: daily or most days daily servings fruits/ve-4 caffeine: Yes (occasional coffee ) Type(s) of exercise: walking and regular exercise frequency: 5-6 times per week Exam Narrative Exam Narrative: Generally: No acute distress Evaluation Evaluation Baseline heart rate: 150 Variability: Average (6-10) monitor accelerations: Present Monitor Decelerations: Absent Contraction Frequency (minutes): 3 Uterine Contraction Intensity: Mild Category of Tracing: Appropriate for gestational age Diagnosis, Plan/Disposition Plan/Disposition Plan: Assessment: 27 year old at 26+5 wks gestation with contractions Stopped with Nifedipine Plan: S/S labor reviewed OB Disposition: home
== END 2022-06-18 14:15 | disposition home or self-care (01) ==
PROVIDERS: Admitting Provider Obstetrics & Gynecology; Referring Provider Obstetrics & Gynecology; Visit Provider Obstetrics & Gynecology
DX: O47.02 False labor before 37 completed weeks of gestation, second trimester (principal); Z3A.26 26 weeks gestation of pregnancy
CPT/HCPCS: 59025; 59050; G0378; G0379

== ENCOUNTER 2022-06-26 16:12 | Observation (INO) | payer OTHER, SELFPAY ==
--- NOTE | 2022-06-26 16:51 | DI.US.S_ITS ---
PROCEDURE: US OB LIMITED INDICATIONS: GROWTH AND CERVICAL LENGTH OUTSIDE/PRIOR DATING DATA: Last menstrual period (LMP): December 13, 2021. LMP-based estimated date of delivery (ANGIE): September 19, 2022. First dating scan (date and location): February 22, 2022. Estimated date of delivery (ANGIE) from first dating scan: September 23, 2022. The calculations are made using the clinical ANGIE of September 19, 2022. TECHNIQUE: Real-time scanning was performed of the fetus, with image documentation and biometric measurements. Endovaginal scanning: Not performed COMPARISON: None. FINDINGS: General: A single living intrauterine gestation is present. Presentation: Vertex. Placenta: Placental position is anterior , without previa. Amniotic fluid index: 17.4 cm, normal range is 5-24 cm. Single deepest vertical pocket is 4.6 cm. heart rate: 157 beats per minute. Maternal cervical canal: 3.8 cm long. Normal lower limit is 2.5 cm. biometrics: Biparietal diameter: 7.0 cm, 28 weeks and 0 days Head circumference: 25.5 cm, 27 weeks and 5 days Abdominal circumference: 22.8 cm, 27 weeks and 1 day Femur length: 5.3 cm, 28 weeks and 1 day Clinically estimated gestational age: 27 weeks and 6 days Composite gestational age from present scan: 27 weeks and 5 days Estimated weight and percentile: 1103 g which correlates with the 29th percentile based off gestational age. Other: Not applicable. IMPRESSION: Single living intrauterine gestation with estimated sonographic gestational age of approximately 27 weeks and 5 days. This measures concordant with gestational age by last menstrual period of approximately 27 weeks and 6 days. Expected interval growth has occurred. Maternal cervical length measures 3.8 cm. Four-quadrant AMELIA measures 17.4 cm with deepest vertical pocket measuring 4.6 cm. We strive to produce accurate, complete, and clear reports of imaging services. To assist us in improving patient care, this report was composed using standard report templates and voice recognition software. Therefore, it may contain abnormal punctuation, insertions and/or omissions. Occasional wrong-word or sound-alike substitutions may occur. Though we review the report and make efforts to correct it, we do recommend that the report be read carefully in proper context to recognize any text inaccuracies. Dictated by: Saqib Waters M.D. on 06/26/2022 at 20:28 Approved by: Saqib Waters M.D. on 06/26/2022 at 20:32
[2022-06-26] MEDS: NIFEdipine 10 MG CAPSULE PO ×4 (17:13→18:58)
[2022-06-26 17:31] LABS: Appearance Urine UA CLEAR; Bilirubin Urine UA NEGATIVE (NEGATIVE); Color Urine UA YELLOW; Glucose Urine UA NEGATIVE (Negative); Ketones Urine UA NEGATIVE (NEGATIVE); Leukocyte Esterase Urine UA NEGATIVE (NEGATIVE); Nitrite Urine UA NEGATIVE (Negative); Occult Blood Urine UA NEGATIVE (Negative); Protein Urine UA NEGATIVE (Negative); Urobilinogen Urine UA 0.2 E.U./dL (0.2)
[2022-06-26 17:42] LABS: pH Urine UA 7.5 (4.5-8.0)
[2022-06-26 18:03] LABS: RBC Urine None Seen (0-5/HPF); Squamous Epithelial Cell Urine 0-1 /HPF (0-5/HPF); WBC Urine None Seen (0-5/HPF)
[2022-06-26 18:04] LABS: Bacteria Urine None Seen; Culture Indicated Urine Cult Not Indicated
--- NOTE | 2022-06-26 18:59 | PM.OBTRLD ---
Visit Information Visit Information Date of evaluation: 06/26/22 Primary OB Provider: Alice Blandon On-call OB Provider: Jay Linda Reason for Evaluation: Yes pre-term labor Comments/Additional reasons for admission: Shayla presents with contractions now at 27+6 wks. She has been seen previously and treated with single dose Nifedipine and a prescription for Nifedipine 30 mg ER w/o benefit. No UTI sx. [facility] Medical History (Updated 06/26/22 @ 19:06 by Jay Linda MD) Allergy-induced asthma Anxiety (~2015) Chronic constipation Depression Dysphagia Eosinophilic esophagitis GERD (gastroesophageal reflux disease) (~2009) Hemorrhoids IBS (irritable bowel syndrome) (~2021) Infected embedded earring Surgical History (Updated 02/15/22 @ 22:11 by Gem Marsh) Anesthesia H/O wisdom tooth extraction (~11/2020) History of colonoscopy (~2018) History of endoscopy Status post tonsillectomy (~2013) Family History (Updated 02/04/22 @ 08:48 by Lorri Ibrahim RN) Grandmother Ovarian cancer Grandfather Stroke Coronary artery disease Father Pacemaker Social History marital status: number of children: 0 household members: spouse lives independently: Yes housing: house pets and animals: Yes (1 dog, 2 cats, 1 snake) education level: college (gary's degree) occupational status: employed 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, 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) special 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 needs: No travel history: over 6 months ago seatbelt use: always helmet use: Yes water heater temp set < 120 deg: Yes (Will check and adjust if needed) working smoke detector in home: Yes fire extinguisher in home: Yes carbon monox detector in home: Yes firearms in home: Yes firearms unloaded and locked: Yes do you feel safe at home: Yes Smoking Status: Never smoker second hand exposure: No alcohol intake: former substance use type: does not use during the past year weight has: remained stable well-balanced diet: daily or most days daily servings fruits/ve-4 caffeine: Yes (occasional coffee ) Type(s) of exercise: walking and regular exercise frequency: 5-6 times per week Exam HENGA Head: normal to inspection, normocephalic and atraumatic Eyes General: appearance normal, both eyes and all related structures Resp Effort & Inspection: normal respiratory effort and able to speak in complete sentences Auscultation: clear to auscultation bilaterally Cardio Rate: regular rate Rhythm: regular rhythm Heart Sounds: S1 normal, S2 normal and no murmurs GI Inspection: normal to inspection Palpation: soft and no hepatosplenomegaly Extrem Right lower extremity: normal to inspection Objective Labs Labs: Laboratory Results - last 24 hr 06/26/22 16:54 Urine Color Yellow Urine Appearance Clear Urine pH 7.5 Ur Specific [place] 1.010 Urine Protein Negative Urine Glucose (UA) Negative Urine Ketones Negative Urine Occult Blood Negative Urine Nitrate Negative Urine Bilirubin Negative Urine Urobilinogen 0.2 Ur Leukocyte Esterase Negative Urine RBC None seen Urine WBC None seen Ur Squamous Epith Cells 0-1 /hpf Urine Bacteria None seen Ur Culture Indicated? Cult not indicated Evaluation Evaluation Baseline heart rate: 150 Variability: Moderate (11-25) monitor accelerations: Present Monitor Decelerations: Absent Contraction Frequency (minutes): 5 Uterine Contraction Intensity: Mild Category of Tracing: Reactive Status: Category l Comments: Cervical length 3.8 cm. No funneling. Diagnosis, Plan/Disposition Final Diagnosis (1) Uterine contractions during : Status: Acute Plan/Disposition Plan: Cervical length is normal despite uterine irritability. Patient counselled re: precautionary symptoms and will go to [facility] as much as is feasible. Patient to contact the office with >6 palpable contractions per hour and continue 30 mg XR nifedipine daily. F/U as scheduled and to be coordinated by our turner machine operator's. Copy of note to Dr. Blandon. OB Disposition: home
== END 2022-06-26 19:41 | disposition home or self-care (01) ==
PROVIDERS: Obstetrics & Gynecology; Admitting Provider Obstetrics & Gynecology; Referring Provider Obstetrics & Gynecology; Visit Provider Obstetrics & Gynecology
DX: O47.02 False labor before 37 completed weeks of gestation, second trimester (principal); Z3A.27 27 weeks gestation of pregnancy
CPT/HCPCS: 59025; 59050; 76815; 81001; G0378; G0379

== ENCOUNTER 2022-08-08 15:07 | Outpatient (CLI) | payer OTHER, SELFPAY ==
--- NOTE | 2022-09-01 21:52 | P.TNLD_ITS ---
Visit Information Visit Information Date of evaluation: 08/08/22 Primary OB Provider: Ailce Blandon On-call OB Provider: Alice Blandon Reason for Evaluation: Yes non-stress test non-stress test reason: other (Fall) Comments/Additional reasons for admission: Patient is a 27-year-old 1 para 0 at 34 weeks gestation who sustained a fall yesterday. Decreased movement today. [facility] Medical History (Updated 08/27/22 @ 10:44 by Jay Linda MD) Allergy-induced asthma Anxiety (~2015) Chronic constipation Depression Dysphagia Eosinophilic esophagitis GERD (gastroesophageal reflux disease) (~2009) Hemorrhoids IBS (irritable bowel syndrome) (~2021) Infected embedded earring Surgical History (Updated 02/15/22 @ 22:11 by Gem Marsh) Anesthesia H/O wisdom tooth extraction (~11/2020) History of colonoscopy (~2018) History of endoscopy Status post tonsillectomy (~2013) Family History (Updated 02/04/22 @ 08:48 by Lorri Ibrhaim RN) Grandmother Ovarian cancer Grandfather Stroke Coronary artery disease Father Pacemaker Social History marital status: number of children: 0 household members: spouse lives independently: Yes housing: house pets and animals: Yes (1 dog, 2 cats, 1 snake) education level: college (gary's degree) occupational status: employed 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, 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) special 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 needs: No travel history: over 6 months ago seatbelt use: always helmet use: Yes water heater temp set < 120 deg: Yes (Will check and adjust if needed) working smoke detector in home: Yes fire extinguisher in home: Yes carbon monox detector in home: Yes firearms in home: Yes firearms unloaded and locked: Yes do you feel safe at home: Yes Smoking Status: Never smoker second hand exposure: No alcohol intake: former substance use type: does not use during the past year weight has: remained stable well-balanced diet: daily or most days daily servings fruits/ve-4 caffeine: Yes (occasional coffee ) Type(s) of exercise: walking and regular exercise frequency: 5-6 times per week Evaluation Evaluation Baseline heart rate: 145 Variability: Moderate (11-25) monitor accelerations: Present Monitor Decelerations: Absent Contraction Frequency (minutes): 0 Category of Tracing: Reactive Diagnosis, Plan/Disposition Plan/Disposition Plan: Assessment: 27 year old at 34 weeks gestation s/p a fall yesterday Reactive NST Plan: [facility]'s D/C to home F/U as scheduled Warning signs reviewed OB Disposition: home
== END 2022-08-08 15:53 | disposition home or self-care (01) ==
LOC: LABOR 15:11 → OB 08-15 16:14
PROVIDERS: Referring Provider Obstetrics & Gynecology; Visit Provider Obstetrics & Gynecology
DX: O26.893 Other specified pregnancy related conditions, third trimester (principal); W19.XXXA Unspecified fall, initial encounter; Z3A.34 34 weeks gestation of pregnancy
CPT/HCPCS: 59025; G0378; G0379

== ENCOUNTER → 2022-08-27 10:21 | Outpatient (CLI) | payer OTHER, SELFPAY ==
[2022-08-28 11:53] LABS: Strep Grp B PCR NEG for Grp B Strep
== END ==
PROVIDERS: Visit Provider Obstetrics & Gynecology
DX: Z34.03 Encounter for supervision of normal first pregnancy, third trimester (principal); Z3A.36 36 weeks gestation of pregnancy
CPT/HCPCS: 87653

== ENCOUNTER 2022-09-11 00:50 | Inpatient (IN) | payer OTHER, SELFPAY ==
[2022-09-11 01:03] VITALS: BP 119/80
--- NOTE | 2022-09-11 01:15 | PM.OBHP.IH.1 ---
OB HPI Date/Time Date of admission: 09/11/22 Date Patient Seen: 09/11/22 Time Patient Seen: 01:15 History of Present Condition Chief complaint: LABOR ANGIE Calculator Estimated Delivery Date Method Current WG Current Estimate 09/19/22 LMP (Certain) 38w 6d Estimated Gestational Age (weeks): 38w6d : 1 Para: 0 Narrative: Pt is a 27yo at 38w6d here with regular contractions. The pt reports that her contractions started earlier this evening, increasing in intensity minimally but frequency, now every 3-5 minutes. She states that she had a small gush of fluid then around 12am. She has had some vaginal spotting as well. She continues to feel her baby move regularly. The pts was complicated by bilateral renal pelviectasis seen on 20wk anatomy scan. Repeat ultrasound was reassuring and normal through MFM. She also had frequent cramping and was initiated on Nifedipine, which was discontinued around 36wks. The pt also has anxiety and depression, and her mood is stable on Lexapro. care: good care, initiated at week # (10) and pounds weight gain (26) Dating criteria OB: LMP confirmed by 1st trimester US Ultrasounds: normal 1st trimester US and abnormal US findings Abnormal ultrasound findings: Mild bilateral pelviectasis, resolved on repeat u/s with MFM Obstetrical complications: none Medical complications OB: psychiatric (anxiety and depression) Preadmission Labs Last OB Lab Results: Blood Type O Positive 02/22/22 12:28 Antibody Screen Negative 02/22/22 12:28 Hematocrit 34.3 % (36-46) L 06/13/22 10:17 Hemoglobin 11.8 g/dL (12.0-16.0) L 06/13/22 10:17 Hepatitis B Surface Antigen Negative s/c (NEGATIVE) 02/22/22 12:28 Hepatitis C Antibody Negative s/c (NEGATIVE) 02/22/22 12:28 Rubella Antibody 8.9 IU/mL (>15) L 02/22/22 12:28 Varicella-Zoster IgG Antibody <135 index (Immune >165) L 02/22/22 12:28 Glucose 1 Hour 65 mg/dL (76-139) L 06/13/22 10:17 Group B Streptococcus (PCR) Neg for grp b strep 12/27/22 10:21 -: Chlamydia screen: negative, Gonorrhea screen: negative and Urine: negative Genetic Screens: Quad screen: Normal and Cell-free DNA: Normal External Labs -: Urine: negative Evaluation Evaluation Baseline heart rate: 120 Variability: Moderate (11-25) monitor accelerations: Present Monitor Decelerations: Absent Contraction Frequency (minutes): 4 Uterine Contraction Intensity: Moderate Status: Category l Dilation (cm): 1 Effacement (%): 90 Dilation: 1-2 cm Effacement: >/=80% station: 0 Position of cervix: posterior Consistency: soft Jha score: 8 [facility] Medical History (Updated 09/03/22 @ 11:52 by Alice Blandon MD) Allergy-induced asthma Anxiety (~2015) Chronic constipation Depression Dysphagia Eosinophilic esophagitis GERD (gastroesophageal reflux disease) (~2009) Hemorrhoids IBS (irritable bowel syndrome) (~2021) Infected embedded earring Surgical History (Updated 02/15/22 @ 22:11 by Gem Marsh) Anesthesia H/O wisdom tooth extraction (~11/2020) History of colonoscopy (~2018) History of endoscopy Status post tonsillectomy (~2013) Family History (Updated 02/04/22 @ 08:48 by Lorri Ibrahim RN) Grandmother Ovarian cancer Grandfather Stroke Coronary artery disease Father Pacemaker Social History marital status: number of children: 0 household members: spouse lives independently: Yes housing: house pets and animals: Yes (1 dog, 2 cats, 1 snake) education level: college (gary's degree) occupational status: employed 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, 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) special mino needs: No travel history: over 6 months ago seatbelt use: always helmet use: Yes water heater temp set < 120 deg: Yes (Will check and adjust if needed) working smoke detector in home: Yes fire extinguisher in home: Yes carbon monox detector in home: Yes firearms in home: Yes firearms unloaded and locked: Yes do you feel safe at home: Yes Smoking Status: Never smoker second hand exposure: No alcohol intake: former substance use type: does not use during the past year weight has: remained stable well-balanced diet: daily or most days daily servings fruits/ve-4 caffeine: Yes (occasional coffee ) Type(s) of exercise: walking and regular exercise frequency: 5-6 times per week Meds Home Medications and Allergies Home Medications Medication Instructions Recorded Confirmed Type pantoprazole 40 mg tablet,delayed 40 mg PO DAILY reflux esophagitis 03/29/20 09/03/22 Rx release #90 tabs albuterol sulfate 90 mcg/actuation 2 puff inhalation Q4-6H PRN 02/04/22 09/03/22 History aerosol inhaler ascorbic acid (vitamin C) 1,000 mg 1,000 mg PO DAILY 02/04/22 09/03/22 History tablet,extended release dicyclomine 20 mg tablet 20 mg PO BID 02/04/22 09/03/22 History diphenhydramine HCl 25 mg capsule 25 mg PO BID PRN 02/04/22 09/03/22 History (Allergy (diphenhydramine)) prenat.vits,muna,uip-nyrh-xnnoi 1 tab PO DAILY 02/04/22 09/03/22 History nifedipine 30 mg tablet,extended See Rx Instructions .Route 08/19/22 09/03/22 Rx release .COMPLEX #30 tabs escitalopram oxalate 10 mg tablet See Rx Instructions .Route 09/05/22 Rx .COMPLEX #30 tabs Allergies Allergy/AdvReac Type Severity Reaction Status Date / Time No Known Drug Allergies Allergy Verified 09/03/22 11:20 OB Exam Narrative Exam Narrative: Gen: NAD, sitting comfortably in bed, appears well CV: RRR, no murmurs Resp: clear to auscultation bilaterally Abd: soft, nontender, gravid Ext: no edema Assessment and Plan Assessment and Plan Assessment and Plan narrative: 27yo at 38w6d here with SROM, in early labor. complicated by bilateral renal pelviectasis, resolved on repeat imaging, as well as anxiety/depression on Lexapro. GBS negative, Rh positive. - Expectant management, anticipate - FHT reassuring - GBS negative, no prophylaxis indicated - Epidural for pain control when desired - Pt with minimal cervical change since last appt, but she is heidi regularly. Anticipate she will convert into more active labor spontaneously. Discussed need for pitocin if not making any cervical change after 8-12hrs of rupture, or sooner if desired, which pt is agreeable to. Does not wish to initiate yet. - Continue PO Lexapro This provider to care for Shayla overnight, and will transfer care to Dr Blandon in the morning.
[2022-09-11 01:38] VITALS: BP 103/69; PULSE 63; RESP 16; TEMP 36.9
[2022-09-11] MEDS: LACTATED RINGERS 1,000 ML 100 ML IV ×2 (02:15→05:45)
[2022-09-11 02:38] LABS: Add Manual Diff / Slide Review NO; Basophils Absolute Auto 200 /uL (0-100); Basophils Percent Auto 1.8 % (0-2); Eosinophils Absolute Auto 500 /uL (0-450); Hematocrit 26.3 % (36-46); Hemoglobin 8.8 g/dL (12.0-16.0); Lymphocytes Absolute Auto 1400 /uL (1100-4500); Lymphocytes Percent Auto 15.3 % (25-40); Mean Corpuscular HGB Conc 33.3 % (30-36); Mean Corpuscular Hemoglobin 32.7 PG (26-34); Mean Corpuscular Volume 98.2 fL (80-100); Monocytes Absolute Auto 600 /uL (0-900); Monocytes Percent Auto 6.7 % (3-14); Neutrophils Absolute Auto 6400 /uL (1500-7000); Neutrophils Percent Auto 70.2 % (50-75); Platelet Count 147 X10^3/uL (150-400); Red Blood Cell Count 2.68 X10^6/uL (4.0-5.2); Red Cell Distribution Width 12.6 % (11.6-14.8); White Blood Cell Count 9.1 X10^3/uL (4.5-11.0)
[2022-09-11 02:48] LABS: COVID19 -Nasal RAPID Negative (Negative)
[2022-09-11] MEDS: fentaNYL 100 MCG/2 ML INJ 50 MCG IV ×2 (03:16→04:33)
[2022-09-11] MEDS: fentaNYL 100 MCG/2 ML INJ (05:56)
[2022-09-11] MEDS: FENT 2MCG/ML BUPIV 0.125% EPI 200 MCG/100 ML PLAST..BAG 12 MCG EPIDURAL (06:09)
[2022-09-11] MEDS: OXYTOCIN PREMIX 30 UNIT/500 ML PLAST..BAG IV (08:04)
[2022-09-11] MEDS: ACETAMINOPHEN 325 MG TABLET 650 MG PO ×2 (14:44→22:38)
[2022-09-11] MEDS: IBUPROFEN 600 MG TABLET PO ×2 (14:45→22:38)
[2022-09-12] MEDS: ACETAMINOPHEN 325 MG TABLET 650 MG PO ×2 (04:08→10:00)
[2022-09-12] MEDS: IBUPROFEN 600 MG TABLET PO ×2 (04:09→10:00)
[2022-09-12 06:25] LABS: Hematocrit 31.4 % (36-46); Hemoglobin 10.6 g/dL (12.0-16.0)
[2022-09-12] MEDS: PRENATAL VIT,CALC/IRON/FOLIC 1 TABLET 1 TAB PO (08:52)
[2022-09-12] MEDS: DOCUSATE 100 MG CAPSULE PO (08:52)
--- NOTE | 2022-09-12 12:12 | PM.OBHP.IH.1 ---
OB HPI Date/Time Date of admission: 09/11/22 Date Patient Seen: 09/11/22 Time Patient Seen: 07:45 History of Present Condition Chief complaint: MATERNITY ANGIE Calculator Estimated Delivery Date Method Current WG Current Estimate 09/19/22 LMP (Certain) 39w 0d Estimated Gestational Age (weeks): 38+6 : 1 Para: 0 care: good care, initiated at week # (10), number of visits (10) and pounds weight gain (26) Dating criteria OB: LMP confirmed by 1st trimester US Ultrasounds: normal 1st trimester US and normal mid trimester US Obstetrical complications: other ( pelviectasis which resolved) Medical complications OB: none Preadmission Labs Last OB Lab Results: Blood Type O Positive 09/11/22 02:08 Antibody Screen Negative 09/11/22 02:08 Hematocrit 31.4 % (36-46) L 09/12/22 06:02 Hemoglobin 10.6 g/dL (12.0-16.0) L 09/12/22 06:02 Hepatitis B Surface Antigen Negative s/c (NEGATIVE) 02/22/22 12:28 Hepatitis C Antibody Negative s/c (NEGATIVE) 02/22/22 12:28 Rubella Antibody 8.9 IU/mL (>15) L 02/22/22 12:28 Varicella-Zoster IgG Antibody <135 index (Immune >165) L 02/22/22 12:28 Glucose 1 Hour 65 mg/dL (76-139) L 06/13/22 10:17 Group B Streptococcus (PCR) Neg for grp b strep 08/27/22 10:21 -: Chlamydia screen: negative, Gonorrhea screen: negative and Urine: negative -: PAP smear: Normal (01/20 normal) Genetic Screens: Quad screen: Normal and Cell-free DNA: Normal External Labs -: Urine: negative Evaluation Evaluation Baseline heart rate: 135 Variability: Moderate (11-25) monitor accelerations: Present Monitor Decelerations: Absent Contraction Frequency (minutes): 7 Uterine Contraction Intensity: Moderate Status: Category l Dilation (cm): 2 Effacement (%): 100 station: 0 [facility] Medical History (Updated 09/03/22 @ 11:52 by Alice Blandon MD) Allergy-induced asthma Anxiety (~2015) Chronic constipation Depression Dysphagia Eosinophilic esophagitis GERD (gastroesophageal reflux disease) (~2009) Hemorrhoids IBS (irritable bowel syndrome) (~2021) Infected embedded earring Surgical History (Updated 02/15/22 @ 22:11 by Gem Marsh) Anesthesia H/O wisdom tooth extraction (~11/2020) History of colonoscopy (~2018) History of endoscopy Status post tonsillectomy (~2013) Family History (Updated 02/04/22 @ 08:48 by Lorri Ibrahim RN) Grandmother Ovarian cancer Grandfather Stroke Coronary artery disease Father Pacemaker Social History marital status: number of children: 0 household members: spouse lives independently: Yes housing: house pets and animals: Yes (1 dog, 2 cats, 1 snake) education level: college (gary's degree) occupational status: employed 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, 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) special 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 needs: No travel history: over 6 months ago seatbelt use: always helmet use: Yes water heater temp set < 120 deg: Yes (Will check and adjust if needed) working smoke detector in home: Yes fire extinguisher in home: Yes carbon monox detector in home: Yes firearms in home: Yes firearms unloaded and locked: Yes do you feel safe at home: Yes Smoking Status: Never smoker second hand exposure: No alcohol intake: former substance use type: does not use during the past year weight has: remained stable well-balanced diet: daily or most days daily servings fruits/ve-4 caffeine: Yes (occasional coffee ) Type(s) of exercise: walking and regular exercise frequency: 5-6 times per week Meds Home Medications and Allergies Home Medications Medication Instructions Recorded Confirmed Type albuterol sulfate 90 mcg/actuation 2 puff inhalation Q4-6H PRN 02/04/22 09/11/22 History aerosol inhaler Allergy Symptoms ascorbic acid (vitamin C) 1,000 mg 1,000 mg PO DAILY 02/04/22 09/11/22 History tablet,extended release prenat.vits,muna,[id number]-[id number] 1 tab PO DAILY 02/04/22 09/11/22 History escitalopram oxalate 10 mg tablet See Rx Instructions .Route 09/05/22 09/11/22 Rx .COMPLEX #30 tabs Allergies Allergy/AdvReac Type Severity Reaction Status Date / Time No Known Drug Allergies Allergy Verified 09/03/22 11:20 OB Exam Narrative Exam Narrative: Generally: Patient comfortable with epidural, sitting up in bed Lungs: Clear to auscultation bilaterally Cardiovascular: Regular rate and rhythm Fundal height: 39 cm Estimated weight: 6-1/2 lb Abdomen: No hepatosplenomegaly Extremities: No edema Objective Labs Result Diagrams: 09/12/22 06:02 Labs: Laboratory Results - last 24 hr 09/12/22 06:02 Hgb 10.6 L Hct 31.4 L Assessment and Plan Assessment and Plan Assessment and Plan narrative: Assessment: 27-year-old 1 para 0 at 38-,6/7 weeks gestation status post rupture of membranes Comfortable with epidural Contractions spacing out Plan: Pitocin augmentation Expected management to spontaneous vaginal delivery Time Spent with Patient Total time spent with greater than 50% in coordination of care (as documented) at patient's floor/unit and/or counseling patient:: 15-24 minutes
--- NOTE | 2022-09-12 12:17 | PM.OBPRVD ---
Events: Labor Augmentation Labor & Delivery Delivery date: 09/11/22 Cervical ripening method: none Induction method: none Delivery augmentation: pitocin Delivery monitor: external FHT and external uterine Route of delivery: Episiotomy description: None L&D Laceration Description: Vaginal - 1st Degree and Labial (bilat) Delivery repair: chromic Quantitative Blood Loss: 50 Anesthesia Type: Epidural Complications: None Narrative: Patient complete and pushed for 96 minutes. At 1106 am, a live male infant delivered spontaneously over an intact perinieum in the direct OP presentation. Tight nuchal cord x 1 cut on the perineum. Body cord x 1. Remainder of the body delivered without difficulty and was placed on mom's abdomen. Cord bloods were obtained. Pitocin was given in the IVF's. The placenta delivered intact with a 3-vessel cord at 1115am. Fundus was massaged to firm. The perineum and vagina were inspected. There were bilateral superficial labial lacerations which were repaired with 2-0 chromic. A superficial vaginal laceration at the introitus was repaired with 2-0 chromic. Hemostasis was achieved. QBL: 50cc. . Apgars 4 at 1 minute and 8 at 5 minutes. Mom and infant stable to recovery. Cherry Baby 1: gender: Male Presentation: vertex Placenta delivery description: Spontaneous Cord Vessel Description: 3 Vessels weight: 6 lb 11 oz Plan for aftercare: Routine care
[2022-09-12 12:59] VITALS: BP 103/69; PULSE 63; RESP 16; TEMP 36.9
[2022-09-12] MEDS: MEASLES,MUMPS,RUBELLA VACC/PF 0.5 ML VIAL SUBCUT (13:29)
== END 2022-09-12 14:00 | disposition home or self-care (01) | DRG 807 ==
PROVIDERS: Obstetrics & Gynecology; Admitting Provider Family Medicine; Referring Provider Family Medicine; Visit Provider Family Medicine
DX: O70.0 First degree perineal laceration during delivery (principal); Z37.0 Single live birth; Z3A.38 38 weeks gestation of pregnancy; O99.344 Other mental disorders complicating childbirth; F41.9 Anxiety disorder, unspecified; F32.A Depression, unspecified; Z20.822 Contact with and (suspected) exposure to COVID-19
CPT/HCPCS: 36415; 59050; 59400; 85014; 85018; 85025; 86850; 86900; 86901; 87635; C9803; G0379; J2590; J3010